=== PATIENT | female | born 1950 | race Caucasian/White ===

== ENCOUNTER 2023-07-30 16:33 | Emergency (ER) | payer OTHER ==
[2023-07-30 17:58] LABS: Absolute Lymphocytes (CBC) 0.2 K/uL (0.7-4.9); Hematocrit 37.9 % (36.0-45.0); Lymphocytes % 2.3 % (15.3-44.8); MCV 99.9 fL (80-100); MPV 6.7 fL (7.6-11.3); Platelets 247 thou/uL (152-406); RBC Red Blood Cell Count 3.79 M/uL (3.86-4.86)
[2023-07-30 18:01] LABS: Protime INR 1.27
[2023-07-30 18:17] LABS: Bilirubin Total 0.6 mg/dL (0.2-1.0); Potassium 4.9 mEq/L (3.5-5.1); Protein, Total 6.8 g/dL (6.4-8.2); Troponin High Sensitivity 12.3 pg/mL (<58.9)
[2023-07-30 18:29] LABS: Blood Morphology Comment NOT SEEN (NOT SEEN); Platelet Estimate ADEQ; White Blood Cell Scan OK (OK)
--- NOTE | 2023-07-30 18:38 | ER ---
Nurse's Notes [facility] Name: Jeffery Hunt Age: 73 yrs Sex: Female : 1950 Arrival Date: 07/30/2023 Time: 16:33 Bed 14 Private MD: Diagnosis: COPD/ Chronic obstructive pulmonary disease with (acute) exacerbation;Hypoxia Presentation: 07/30 16:45 Chief complaint: EMS states: patient fell at grocery store, not wearing home O2, sats ko1 were 72%. Has a skin tear to left thumb, left ring finger and left tricep, also left calf. Coronavirus screen: At this time, the client does not indicate any symptoms associated with coronavirus-19. Ebola Screen: No symptoms or risks identified at this time. Initial Sepsis Screen: Does the patient meet any 2 criteria? RR > 20 per min. HR > 90 bpm. Yes Does the patient have a suspected source of infection? Yes: Productive cough/pneumonia. Risk Assessment: Do you want to hurt yourself or someone else? Patient reports no desire to harm self or others. Onset of symptoms was July 30, 2023. Mechanism of Injury: Fall from standing position. 16:45 Method Of Arrival: EMS: [facility] ko1 16:45 Acuity: ADRIANA 3 ko1 Triage Assessment: 18:29 General: Appears distressed, uncomfortable, Behavior is cooperative, appropriate for ko1 age, anxious. Pain: Denies pain. EENT: No deficits noted. Neuro: No deficits noted. Cardiovascular: No deficits noted. Respiratory: Airway is patent Respiratory effort is labored, using tripod position, Respiratory pattern is tachypnea Breath sounds are coarse Breath sounds with crackles Breath sounds with rhonchi bilaterally. the patient has severe shortness of breath. GI: No deficits noted. : No deficits noted. Derm: Derm: Wound noted left ring finger, left thumb, left tricep and left calf skin tears. Musculoskeletal: No deficits noted. Injury Description: skin tear. Historical: - Allergies: 18:29 No Known Allergies; ko1 - PMHx: 18:29 Chronic obstructive lung disease; Pneumonia; ko1 - Immunization history:: Adult Immunizations unknown. - Social history:: Smoking status: Patient reports the use of cigarette tobacco products, smokes two packs cigarettes per day. Screenin:45 [facility] ED Fall Risk Assessment (Adult) History of falling in the last 3 months, ko1 including since admission Yes- single mechanical fall (1 pt) Confusion or Disorientation No (0 pts) Intoxicated or Sedated No (0 pts) Impaired Gait Yes (1 pt) Mobility Assist Device Used Yes (1 pt) Altered Elimination No (0 pt) Score/Fall Risk Level 3 or more points = High Risk Oriented to surroundings, Maintained a safe environment, Educated pt \T\ family on fall prevention, incl call for assistance when getting out of bed, Assessed \T\ reinforced patient's understanding of fall precautions, Provided non-skid footwear, Hourly rounding (assess needs \T\ fall precautionary measures) done, Used ambulatory aids as needed (educated on \T\ assisted with), Used gait belt as appropriate Implemented a Fall Risk Plan of Care, Apply high fall risk patient identification: yellow non skid footwear/ fall signage, Utilized family, sitter, or virtual size maker as indicated. Abuse screen: Denies threats or abuse. Denies injuries from another. Nutritional screening: No deficits noted. Tuberculosis screening: No symptoms or risk factors identified. Assessment: 17:00 Reassessment: see triage note. ko1 18:34 Reassessment: Patient refused all treatments, agreed to labs except second set of blood ko1 cultures. States she has a DNR does not want any treatments or tests, Farida Ng, KARIN aware. Vital Signs: 16:45 BP 114 / 56; Pulse 109; Resp 22; Temp 99.6(O); Pulse Ox 99% on 3 lpm NC; ko1 18:00 BP 108 / 56; Pulse 98; Resp 24; Pulse Ox 99% on 3 lpm NC; ko1 ED Course: 16:45 Inserted saline lock: 22 gauge in right antecubital area, using aseptic technique. ko1 Blood collected. 16:45 Patient has correct armband on for positive identification. Bed in low position. Call ko1 light in reach. Side rails up X2. Provided Education on: na. Client placed on continuous cardiac and pulse oximetry monitoring. NIBP monitoring applied. bus driver/monitor on. Door closed. Noise minimized. Lights dimmed. Warm blanket given. 16:48 Patient arrived in ED. ko1 16:48 Hazel Ng, ANNA is PHCP. kb 16:48 Tino Stephenson MD is Attending Physician. kb 16:50 Carmelita Yan, RN is Primary Nurse. ko1 17:42 Magnesium Sent. ko1 17:42 Troponin High Sensitivity Sent. ko1 17:42 BNP Sent. ko1 17:43 CBC with Diff Sent. ko1 17:43 CMP Sent. ko1 17:43 Lactate w/ 2H reflex if indic. Sent. ko1 17:43 Protime (+inr) Sent. ko1 17:43 Ptt, Activated Sent. ko1 18:29 Triage completed. ko1 18:29 Arm band placed on right wrist. Patient placed in an exam room, on a stretcher, on ko1 oxygen, on manager monitoring, on pulse oximetry, Patient notified of wait time. 18:35 No provider procedures requiring assistance completed. IV discontinued, intact, ko1 bleeding controlled, No redness/swelling at site. Pressure dressing applied. 18:40 Primary Nurse role handed off by Carmelita Yan, RN kb Administered Medications: 17:42 Not Given (Patient Refused): Albuterol Inhalation 2.5 mg Inhalation once ko1 17:42 Not Given (Patient Refused): Ipratropium Inhalation Aerosol 0.5 mg Inhalation once ko1 17:42 Not Given (Patient Refused): MethylPrednisoLONE IVP 125 mg IVP once ko1 17:42 Not Given (Patient Refused): Magnesium Sulfate IVPB 1 grams IVPB once over 1 hrs ko1 Medication: 18:32 VIS not applicable for this client. ko1 Outcome: 18:35 AMA AMA form signed ko1 18:35 Condition: unchanged 18:35 Discharge instructions given to patient, family, Instructed on wound care, Demonstrated understanding of wound care. 18:38 Patient left the ED. ko1 18:41 Patient left the ED. kb Signatures: Hazel Ng, VENDING MACHINE SERVICER-C VENDING MACHINE SERVICER-Ckb Carmelita Yan, RN RN ko1
--- NOTE | 2023-07-30 18:41 | EDPHYS ---
Physician Documentation [facility] Name: Jeffery Hunt Age: 73 yrs Sex: Female : 1950 Arrival Date: 07/30/2023 Time: 16:33 Bed 14 Private MD: ED Physician Tino Stephenson HPI: 07/31 00:30 This 73 yrs old Female presents to ER via EMS with complaints of Near syncope, kb shortness of breath, weakness. 00:30 The patient has experienced near-syncope. Onset: The symptoms/episode began/occurred kb just prior to arrival. Duration: This was a single episode. Context: the episode(s) was witnessed, by a bystander, occurred at a parking lot, occurred while the patient was walking, Just prior to the episode the patient experienced no apparent symptoms. Associated injury: Other: Skin tears noted to left calf, left hand and left upper arm.. Associated signs and symptoms: Pertinent positives: shortness of breath. Current symptoms: Currently, the patient is not experiencing any symptoms, the patient feels back to baseline, no decreased level of consciousness, no confusion, no dysphasia, no headache, no paralysis, no visual changes. The patient has not experienced similar symptoms in the past. The patient has not recently seen a physician. Patient became weak while walking out of [employer] and fell to the ground. States she did not pass out. EMS reports bystanders think she may have passed out for couple of seconds, O2 sat 86% upon their arrival. Patient is on second course of antibiotics for pneumonia.. Historical: - Allergies: 07/30 18:29 No Known Allergies; ko1 - PMHx: 18:29 Chronic obstructive lung disease; Pneumonia; ko1 - Immunization history:: Adult Immunizations unknown. - Social history:: Smoking status: Patient reports the use of cigarette tobacco products, smokes two packs cigarettes per day. ROS: 07/31 00:30 Constitutional: Negative for fever, chills, and weight loss. kb Respiratory: Positive for cough, shortness of breath, wheezing. Neuro: Positive for near syncope, weakness. All other systems are negative. Exam: 00:34 Head/Face: Normocephalic, atraumatic. ENT: Moist Mucous membranes Cardiovascular: kb Regular rate and rhythm with a normal S1 and S2. No gallops, murmurs, or rubs. No pulse deficits. Abdomen/GI: Soft, non-tender. No distention MS/ Extremity: Pulses equal, no cyanosis. Neurovascular intact. Full, normal range of motion. Neuro: Awake and alert, GCS 15, oriented to person, place, time, and situation. Moves all extremities. Normal gait. 00:34 Constitutional: The patient appears alert, awake. 00:34 Respiratory: moderate respiratory distress is noted, Respirations: labored breathing, that is moderate, Breath sounds: wheezing: expiratory that is moderate, is heard diffusely. 00:34 Skin: Small skin tears noted to left calf, left hand and left upper arm. Vital Signs: 07/30 16:45 BP 114 / 56; Pulse 109; Resp 22; Temp 99.6(O); Pulse Ox 99% on 3 lpm NC; ko1 18:00 BP 108 / 56; Pulse 98; Resp 24; Pulse Ox 99% on 3 lpm NC; ko1 MDM: 16:48 Patient medically screened. kb 07/31 00:34 Differential Diagnosis: Pneumonia, sepsis, COPD exacerbation, bronchitis, flu, COVID. kb Data reviewed: vital signs, nurses notes. Consideration of Admission/Observation Escalation of care including admission/observation considered. Admission considered but patient refuses to stay in the hospital.. Management of patient was discussed with the following: Dr. Stephenson who also recommends admission. I considered the following discharge prescriptions or medication management in the emergency department Solu-Medrol, albuterol, Atrovent, magnesium considered but patient refuses. Historians other than the Patient: EMS: [facility]. Counseling: I had a detailed discussion with the patient and/or guardian regarding the historical points, exam findings, and any diagnostic results supporting the discharge/admit diagnosis, lab results, the need for further work-up and treatment in the hospital. Refusal of service: The patient/guardian displays adequate decision making capability and despite a detailed discussion of alternatives, benefits, risks, and consequences refuses: Admission to the hospital for further work-up and treatment, Medications, all X-rays. ED course: Patient has decided to leave our facility AGAINST MEDICAL ADVICE. I have assessed the patient's ability to make an informed decision and it is my opinion at this time that the patient has the medical decision-making capacity to comprehend information regarding current medical condition and appreciates the impact of the disease or condition and the consequences of various options for treatment, including foregoing treatment. The patient possesses the ability to evaluate all treatment options, compare the risk and benefits of each option, communicate choice and is able to make rational choices. I have explained to the patient further testing, treatment, and evaluation I would like to perform during the current emergency department visit as well as any possible alternatives that could be accomplished in a timely manner. I have outlined the possible risk of foregoing any or all of these interventions and the patient understands and acknowledges that the decision to leave may result in undesirable consequences such as , permanent disability, and/or loss of current lifestyle. Even though leaving AMA a is not ideal, I have instructed the patient to follow any discharge instructions given, take any medications prescribed and resume care as soon as possible with another provider. Additionally, I have clearly stated that the patient is welcome to return at any time to continue care at our facility.. 00:37 ED course: Patient refuses all medications, chest x-ray and admission. States that she kb has oxygen at home that she can use, neb treatments make her too nervous and she is not going to stay in the hospital.. 15:58 ED course: Attempted to call pt for follow up with no answer. Voicemail left. kb 07/30 16:50 Order name: Blood Culture Adult (2) kb 07/30 16:50 Order name: CBC with Diff; Complete Time: 18:35 kb 07/30 16:50 Order name: CMP; Complete Time: 18:18 kb 07/30 16:50 Order name: Lactate w/ 2H reflex if indic.; Complete Time: 18:18 kb 07/30 16:50 Order name: Protime (+inr); Complete Time: 18:05 kb 07/30 16:50 Order name: Ptt, Activated; Complete Time: 18:05 kb 07/30 16:50 Order name: BNP; Complete Time: 18:18 kb 07/30 16:50 Order name: Troponin High Sensitivity; Complete Time: 18:18 kb 07/30 16:50 Order name: Magnesium; Complete Time: 18:18 kb 07/30 18:02 Order name: CBC Smear Scan; Complete Time: 18:35 EDMS 07/30 16:50 Order name: Cardiac monitoring; Complete Time: 17:12 kb 07/30 16:50 Order name: IV Saline Lock - Large Bore; Complete Time: 17:43 kb 07/30 16:50 Order name: Labs collected and sent kb 07/30 16:50 Order name: O2 Per Protocol; Complete Time: 17:12 kb 07/30 16:50 Order name: O2 Sat Monitoring; Complete Time: 17:12 kb 07/30 16:50 Order name: Vital Signs; Complete Time: 17:12 kb Administered Medications: 07/30 17:42 Not Given (Patient Refused): Albuterol Inhalation 2.5 mg Inhalation once ko1 17:42 Not Given (Patient Refused): Ipratropium Inhalation Aerosol 0.5 mg Inhalation once ko1 17:42 Not Given (Patient Refused): MethylPrednisoLONE IVP 125 mg IVP once ko1 17:42 Not Given (Patient Refused): Magnesium Sulfate IVPB 1 grams IVPB once over 1 hrs ko1 Disposition: 07/31 10:01 Co-signature as Attending Physician, Tino Stephenson MD I reviewed the patient's care rn provided by the Advanced Practice Provider and agree with the diagnosis and treatment plan. Disposition Summary: 07/30/23 18:38 Left Against Medical Advice Location: Home ko1 Problem: an acute exacerbation kb Symptoms: are unchanged kb Condition: Serious(07/30/23 18:40) kb Diagnosis - COPD/ Chronic obstructive pulmonary disease with (acute) exacerbation kb - Hypoxia kb Followup: kb - With: Emergency Department - When: As needed - Reason: Worsening of condition Followup: kb - With: Private Physician - When: 2 - 3 days - Reason: Recheck today's complaints, Continuance of care, Re-evaluation by your physician Signatures: Dispatcher [employer] Hazel Ramos, ALMOND PAN FINISHER-C ALMOND PAN FINISHER-Ckb Tino Stephenson MD MD rn Oliver, Kathy, RN RN ko1 Corrections: (The following items were deleted from the chart) 07/30 17:44 16:51 Chest Single View+RAD.RAD.BRZ ordered. EDWV ANGIWV 18:40 18:38 Critical ko1 kb
[2023-07-30 18:48] VITALS: TEMP 99.6; O2SAT 99
[2023-07-30 18:50] VITALS: BP 108/56
== END 2023-07-30 18:41 | disposition left against medical advice (07) ==
LOC: ER 16:33
DX: J44.1 Chronic obstructive pulmonary disease with (acute) exacerbation (principal); R09.02 Hypoxemia; F17.210 Nicotine dependence, cigarettes, uncomplicated
CPT/HCPCS: 36415; 80053; 83605; 83735; 83880; 84484; 85025; 85610; 85730; 87040; 99285

== ENCOUNTER 2023-08-21 07:15 | Inpatient (IN) | payer OTHER ==
[2023-08-21 07:41] LABS: Absolute Lymphocytes (CBC) 0.5 K/uL (0.7-4.9); Hematocrit 34.7 % (36.0-45.0); Lymphocytes % 3.8 % (15.3-44.8); MCV 98.9 fL (80-100); MPV 6.7 fL (7.6-11.3); Platelets 201 thou/uL (152-406); RBC Red Blood Cell Count 3.51 M/uL (3.86-4.86)
[2023-08-21] MEDS ORDERED: LEVALBUTEROL 0.63 MG/3 ML NEB ONE (07:47)
[2023-08-21 08:12] LABS: Albumin 2.4 g/dL (3.4-5.0); Bilirubin Direct 0.3 mg/dL (0-0.2); Bilirubin Indirect, Calculated 0.6 mg/dL (0.2-0.8); Bilirubin Total 0.9 mg/dL (0.2-1.0); Magnesium 1.6 mg/dL (1.6-2.4); Protein, Total 5.4 g/dL (6.4-8.2); Troponin High Sensitivity 17.2 pg/mL (<58.9)
--- NOTE | 2023-08-21 08:20 | RAD REPORT ---
EXAM DESCRIPTION: RAD - Pelvis - 08/21/2023 8:01 am CLINICAL HISTORY: TRAUMA COMPARISON: CT ABDOMEN PELVIS WO CONTRAST dated 07/22/2015 TECHNIQUE: Single AP view of the pelvis. FINDINGS: Cortical defect along the pubis junction with the left superior pubic ramus, suggestive of a displaced fracture. . No suspicious osseous lesions. Mild bilateral degenerative changes of the hi p joints. Other pelvic joints are unremarkable. Visualized aspects of the abdomen and soft tissues ar e unremarkable. IMPRESSION: Cortical defect suggesting a fracture along the junction of the pubis with the left supe rior pubic ramus.
--- NOTE | 2023-08-21 08:23 | RAD REPORT ---
EXAM DESCRIPTION: RADChest Single View08/21/2023 8:01 am CLINICAL HISTORY: COPD COMPARISON: Chest Pa And Lat (2 Views) dated 02/11/2019; CHEST PA AND LAT 2 VIEW dated 08/11/2015; TIARA ST SINGLE VIEW dated 07/26/2015; CHEST SINGLE VIEW dated 07/25/2015; Head C Spine Mpr Wo Con dated 2022 TECHNIQUE: Portable AP view of the chest. FINDINGS: Hyperinflation and hyperlucency suggesting COPD. Interstitial thickening near the apices. Suggestion of small right pleural effusion. No pneumothorax or left effusion. The cardiomediastinal contours are unremarkable. Cortical irregularity along the of the left sixth- eighth ribs, suggestin g fractures of indeterminate age. IMPRESSION: Interstitial thickening near the apices and development of small right pleural effusion. Findings suggest COPD exacerbation. Cortical irregularity along the left sixth-eighth ribs, suggesting fractures of indeterminate age.
--- NOTE | 2023-08-21 08:56 | RAD REPORT ---
EXAM DESCRIPTION: CT - CTHCSPWOC - 08/21/2023 8:06 am CLINICAL HISTORY: TRAUMA COMPARISON: HEAD BRAIN W O CONTRAST dated 07/07/2009 TECHNIQUE: Axial thin cut noncontrast CT images of the head were obtained. Axial thin cut noncontrast CT images of the cervical spine were obtained. Multiplanar reformatted images were generated and reviewed. All CT scans are performed using dose optimization technique as appropriate and may include automated exposure control or mA/KV adjustment according to patient size. FINDINGS: CT HEAD WITHOUT CONTRAST: No acute hemorrhage, hydrocephalus or extra-axial collection is identified. Confluent deep white caridad er hypodensities, nonspecific, suggestive of chronic small vessel ischemic changes. Pattern is progre ssive since 2008. No areas of brain edema or midline shift. Calvarial thinning in the parietal region s bilaterally, nonspecific. The paranasal sinuses and mastoids are clear.The calvarium is intact. CT CERVICAL SPINE WITHOUT CONTRAST: No fracture or subluxation. Levoconvex curvature at the cervicothoracic junction, could be positional . No prevertebral soft tissues swelling is identified. Biapical scarring with interstitial and peribr onchovascular thickening. Background moderate to advanced centrilobular emphysematous changes. IMPRESSION: No acute traumatic intracranial or cervical spine findings. Findings suggestive of chronic small vessel ischemic changes, progressive since 2008. Nonspecific wesly ateral parietal calvarial thinning. Biapical scarring in the included lungs with interstitial and peribronchovascular thickening. Finding s may suggest COPD exacerbation.
[2023-08-21 09:04] LABS: Specific Gravity 1.011 (1.005-1.030); Urine Bacteria None Seen /HPF (<20); Urine Bilirubin NEGATIVE (Negative); Urine Blood 1+ (Negative); Urine Clarity Clear (Clear); Urine Color Light-Yellow (Yellow); Urine Glucose 2+ (Negative); Urine Protein TRACE (Negative); Urine Urobilinogen Normal (Normal)
[2023-08-21] MEDS ORDERED: POTASSIUM CL SA 10 MEQ TAB PO ONE (09:39)
--- NOTE | 2023-08-21 09:42 | ER ---
Nurse's Notes [facility] Name: Jeffery Hunt Age: 73 yrs Sex: Female : 1950 Arrival Date: 08/21/2023 Time: 07:15 Bed 7 Private MD: Diagnosis: Generalized weakness;Multiple falls;COPD exacerbation;Nondisplaced fracture left superior pubic ramus;Hypokalemia Presentation: 08/21 07:25 Chief complaint: EMS states: Pt lives alone, has had multiple falls, fell last night at ph approx 1700 and has been on the ground until sons checked on her this morning, multiple wounds to bilateral arms, ankles/feet, stage 2 pressure ulcer to R hip, pt states that she was lying on that side after falling. Coronavirus screen: Vaccine status: Patient reports being unvaccinated. Ebola Screen: No symptoms or risks identified at this time. Initial Sepsis Screen: Does the patient meet any 2 criteria? RR > 20 per min. Does the patient have a suspected source of infection? Yes: Productive cough/pneumonia. Risk Assessment: Do you want to hurt yourself or someone else? Patient reports no desire to harm self or others. Onset of symptoms was August 21, 2023. 07:25 Method Of Arrival: EMS: [facility] 07:25 Acuity: ADRIANA 2 ph Triage Assessment: 07:29 General: Appears in no apparent distress. Behavior is calm, cooperative. Pain: Denies ph pain. Neuro: Level of Consciousness is awake, alert, obeys commands, Oriented to person, place, time, situation. Cardiovascular: Capillary refill is sluggish in bilateral fingers. Respiratory: Reports shortness of breath cough that is Airway is patent Respiratory effort is labored, Respiratory pattern is tachypnea Breath sounds are coarse bilaterally. GI: No signs and/or symptoms were reported involving the gastrointestinal system. Derm: Bruising that is dark purple, on right arm and left arm Decubitus located on right hip(s) approximately 2.6 cm to 7.5 cm is stage II. Musculoskeletal:. Injury Description: multiple skin tears and hematomas to bilateral arms and lower legs, large skin tear to L ankle. Historical: - Allergies: 07:24 No Known Allergies; ld1 - PMHx: 07:24 Chronic obstructive lung disease; Pneumonia; ld1 - Immunization history:: Adult Immunizations up to date. - Social history:: Smoking status: Patient/guardian denies using tobacco, Patient/guardian denies using alcohol. - Family history:: not pertinent. Screenin:28 [facility] ED Fall Risk Assessment (Adult) History of falling in the last 3 months, ph including since admission Yes- fall prone (multiple falls) (3 pts) Confusion or Disorientation No (0 pts) Intoxicated or Sedated No (0 pts) Impaired Gait Yes (1 pt) Mobility Assist Device Used Yes (1 pt) Altered Elimination Yes (1 pt) Score/Fall Risk Level 3 or more points = High Risk Oriented to surroundings, Maintained a safe environment, Hourly rounding (assess needs \T\ fall precautionary measures) done, Used ambulatory aids as needed (educated on \T\ assisted with), Used gait belt as appropriate. Abuse screen: Denies threats or abuse. Denies injuries from another. Nutritional screening: No deficits noted. Tuberculosis screening: No symptoms or risk factors identified. Assessment: 09:06 General: Appears in no apparent distress. comfortable, Behavior is calm, cooperative, ld1 appropriate for age. Pain: Complains of pain in left arm and right arm Pain does not radiate. Pain currently is 8 out of 10 on a pain scale. Quality of pain is described as throbbing. Neuro: Level of Consciousness is awake, alert, obeys commands, Oriented to person, place, time, situation. Cardiovascular: Capillary refill < 3 seconds Patient's skin is warm and dry. Rhythm is sinus rhythm. Respiratory: Airway is patent Respiratory effort is even, labored. GI: Abdomen is flat, non-distended. : No signs and/or symptoms were reported regarding the genitourinary system. EENT: No signs and/or symptoms were reported regarding the EENT system. Derm: No signs and/or symptoms reported regarding the dermatologic system. 10:30 Reassessment: Patient appears in no apparent distress at this time. No changes from ld1 previously documented assessment. Patient and/or family updated on plan of care and expected duration. Pain level reassessed. Patient is alert, oriented x 3, equal unlabored respirations, skin warm/dry/pink. 11:25 Reassessment: Patient appears in no apparent distress at this time. No changes from ld1 previously documented assessment. Patient and/or family updated on plan of care and expected duration. Pain level reassessed. Vital Signs: 07:24 BP 124 / 72; Pulse 69; Resp 26; Pulse Ox 98% on R/A; Weight 51.26 kg; Height 5 ft. 2 ld1 in. ; 09:06 BP 101 / 63; Pulse 83; Pulse Ox 96% on R/A; ld1 11:25 BP 107 / 62; Pulse 77; Resp 18; Pulse Ox 96% on R/A; ld1 07:24 Body Mass Index 20.67 (51.26 kg, 157.48 cm) ld1 ED Course: 07:22 Patient arrived in ED. bd 07:22 Bear Armstrong MD is Attending Physician. rt 07:25 Lashay Aguirre, RN is Primary Nurse. ph 07:28 Triage completed. ph 07:31 Arm band placed on Patient placed in an exam room, on a stretcher, on driver merchandiser, ph on pulse oximetry. 07:31 Patient has correct armband on for positive identification. Placed in gown. Bed in low ph position. Call light in reach. Side rails up X2. Client placed on continuous cardiac and pulse oximetry monitoring. NIBP monitoring applied. Warm blanket given. 07:37 Maintain EMS IV. Dressing intact. Good blood return noted. Site clean \T\ dry. Gauge \T\ ld 1 site: 18G LAC. 08:04 XRAY Chest (1 view) In Process Unspecified. EDMS 08:04 Pelvis XRAY In Process Unspecified. EDMS 08:06 CT Head C Spine In Process Unspecified. EDMS 09:06 No provider procedures requiring assistance completed. ld1 09:40 Leobardo Stephenson MD is Hospitalizing Provider. rt 10:43 Thorax Wo Con In Process Unspecified. EDMS 12:00 Patient admitted, IV remains in place. ph Administered Medications: 07:37 Drug: Levalbuterol Inhalation 0.63 mg Inhalation once Route: Inhalation; ld1 09:31 Drug: Potassium Chloride PO Liquid 40 mEq PO once Route: PO; ld1 10:00 Follow up: Response: No adverse reaction ph Outcome: 09:41 Decision to Hospitalize by Provider. rt 12:12 Patient left the ED. ll1 12:12 Admitted to Med/surg ph 12:12 Condition: stable Signatures: Dispatcher [employer] EDMS DirTerrie cano Patricia, RN RN ph Syd, Chhaya, RN RN ll1 Grecia Lyons RN RN ld1 Bear Armstrong MD MD rt
--- NOTE | 2023-08-21 09:42 | EDPHYS ---
Physician Documentation [facility] Name: Jeffery Hunt Age: 73 yrs Sex: Female : 1950 Arrival Date: 08/21/2023 Time: 07:15 Bed 7 Private MD: ED Physician Bear Armstrong HPI: 08/21 07:40 This 73 yrs old Female presents to ER via EMS with complaints of Multiple falls. rt 07:40 Patient presents to the ED with a fall last night, estimated at about 5 PM. She has rt been lying on the ground since then. Patient did have another fall about a day or 2 before also with prolonged downtime however, she reported that she refused transport at that time. She cannot recall the events surrounding the fall. She reports shortness of breath but denies other acute complaints at this time. Symptoms are moderate in severity, no other aggravating or alleviating factors.. Historical: - Allergies: 07:24 No Known Allergies; ld1 - PMHx: 07:24 Chronic obstructive lung disease; Pneumonia; ld1 - Immunization history:: Adult Immunizations up to date. - Social history:: Smoking status: Patient/guardian denies using tobacco, Patient/guardian denies using alcohol. - Family history:: not pertinent. ROS: 07:40 Constitutional: Negative for fever, chills, and weight loss, Cardiovascular: Negative rt for chest pain, palpitations, and edema, Abdomen/GI: Negative for abdominal pain, nausea, vomiting, diarrhea, and constipation, MS/Extremity: Negative for injury and deformity, Neuro: Negative for headache, weakness, numbness, tingling, and seizure, Psych: Negative for depression, anxiety, suicide ideation, homicidal ideation, and hallucinations, 07:40 Respiratory: Positive for cough, shortness of breath, 07:40 Skin: Positive for Skin tears, pressure wound, Exam: 07:40 Constitutional: This is a well developed, well nourished patient who is awake, alert, rt and in no acute distress. Chest/axilla: Normal chest wall appearance and motion. Nontender with no deformity. No lesions are appreciated. Cardiovascular: Regular rate and rhythm with a normal S1 and S2. No gallops, murmurs, or rubs. Normal PMI, no JVD. No pulse deficits. 07:40 Neck: Trachea midline, no thyromegaly or masses palpated, and no cervical lymphadenopathy. Supple, full range of motion without nuchal rigidity, or vertebral point tenderness. No Meningismus. Abdomen/GI: Soft, non-tender, with normal bowel sounds. No distension or tympany. No guarding or rebound. No evidence of tenderness throughout. Neuro: Awake and alert, GCS 15, oriented to person, place, time, and situation. Cranial nerves II-XII grossly intact. Motor strength 5/5 in all extremities. Sensory grossly intact. Cerebellar exam normal. Normal gait. Psych: Awake, alert, with orientation to person, place and time. Behavior, mood, and affect are within normal limits. 07:40 Head/face: Dried blood on the left cheek, no other external evidence of trauma. 07:40 Respiratory: Coarse rhonchorous breath sounds heart normal lung betts, no respiratory distress, 07:40 Musculoskeletal/extremity: No swelling, deformity, tenderness to palpation, skin tears noted on the left hand, left foot. 07:40 Skin: Pressure wound noted to the right side.. 08:40 ECG was reviewed by the Attending Physician. rt Vital Signs: 07:24 BP 124 / 72; Pulse 69; Resp 26; Pulse Ox 98% on R/A; Weight 51.26 kg; Height 5 ft. 2 ld1 in. ; 09:06 BP 101 / 63; Pulse 83; Pulse Ox 96% on R/A; ld1 11:25 BP 107 / 62; Pulse 77; Resp 18; Pulse Ox 96% on R/A; ld1 07:24 Body Mass Index 20.67 (51.26 kg, 157.48 cm) ld1 MDM: 07:22 Patient medically screened. rt 09:41 Differential Diagnosis Electrolytes terms, rhabdomyolysis, syncope. Data reviewed: rt vital signs, nurses notes, lab test result(s), EKG, radiologic studies. Consideration of Admission/Observation Patient was admitted/placed on observation. Management of patient was discussed with the following: Hospitalist: Agrees to admit. I considered the following discharge prescriptions or medication management in the emergency department Medications were administered in the Emergency Department. See MAR. Independent interpretation of the following test(s) in the Emergency Department X-Ray: My interpretation is No consolidation seen on interpretation of the x-ray images. Care significantly affected by the following chronic conditions: Chronic Obstructive Pulmonary Disease. Counseling: I had a detailed discussion with the patient and/or guardian regarding the historical points, exam findings, and any diagnostic results supporting the discharge/admit diagnosis, lab results, radiology results, the need for further work-up and treatment in the hospital. Response to treatment: the patient's symptoms have mildly improved after treatment. 08/21 07:24 Order name: Basic Metabolic Panel; Complete Time: 08:34 rt 08/21 07:24 Order name: CBC with Diff; Complete Time: 08:34 rt 08/21 07:24 Order name: LFT's; Complete Time: 08:34 rt 08/21 07:24 Order name: Magnesium; Complete Time: 08:34 rt 08/21 07:24 Order name: NT PRO-BNP; Complete Time: 08:34 rt 08/21 07:24 Order name: Troponin HS; Complete Time: 08:34 rt 08/21 07:24 Order name: CPK; Complete Time: 08:34 rt 08/21 07:24 Order name: UAM; Complete Time: 09:05 rt 08/21 10:33 Order name: Basic Metabolic Panel [facility] 08/21 10:33 Order name: Creatine Phosphokinase [facility] 08/21 10:39 Order name: Magnesium [facility] 08/21 10:39 Order name: Phosphorus [facility] 08/21 10:39 Order name: Protime (+INR) [facility] 08/21 10:39 Order name: T4 Free [facility] 08/21 10:39 Order name: Thyroid Stimulating Hormone [facility] 08/21 10:39 Order name: Urinalysis w/ reflexes [facility] 08/21 10:39 Order name: Basic Metabolic Panel [facility] 08/21 10:39 Order name: Basic Metabolic Panel [facility] 08/21 10:39 Order name: CBC with Automated Diff [facility] 08/21 10:39 Order name: CBC with Automated Diff [facility] 08/21 10:39 Order name: Creatine Phosphokinase [facility] 08/21 10:39 Order name: Creatine Phosphokinase [facility] 08/21 10:39 Order name: Creatine Phosphokinase [facility] 08/21 10:39 Order name: Creatine Phosphokinase [facility] 08/21 10:39 Order name: Lipid Profile [facility] 08/21 10:39 Order name: Lipid Profile [facility] 08/21 10:39 Order name: NT PRO-BNP [facility] 08/21 10:39 Order name: NT PRO-BNP [facility] 08/21 10:43 Order name: Hemoglobin A1c [facility] 08/21 07:24 Order name: XRAY Chest (1 view); Complete Time: 08:34 rt 08/21 07:24 Order name: Pelvis XRAY; Complete Time: 08:34 rt 08/21 07:24 Order name: CT Head C Spine; Complete Time: 08:57 rt 08/21 10:30 Order name: Thorax Wo Con; Complete Time: 11:53 [facility] 08/21 07:24 Order name: EKG; Complete Time: 07:25 rt 08/21 10:39 Order name: Regular [facility] 08/21 10:43 Order name: Case Management Consult [facility] 08/21 10:43 Order name: Physical Therapy Consult [facility] 08/21 07:24 Order name: Cardiac monitoring; Complete Time: 07:28 rt 08/21 07:24 Order name: EKG - Nurse/Tech; Complete Time: 07:37 rt 08/21 07:24 Order name: IV Saline Lock; Complete Time: 07:28 rt 08/21 07:24 Order name: Labs collected and sent; Complete Time: 07:34 rt 08/21 07:24 Order name: O2 Per Protocol; Complete Time: 07:28 rt 08/21 07:24 Order name: O2 Sat Monitoring; Complete Time: 07:28 rt EC:40 Rate is 79 beats/min. Rhythm is regular, Normal Sinus Rhythm with Unifocal PVCs. QRS rt [place] is Normal. ME interval is normal. QRS interval is normal. QT interval is normal. No Q waves. Clinical impression: NSR w/ Non-specific ST/T Changes. Administered Medications: 07:37 Drug: Levalbuterol Inhalation 0.63 mg Inhalation once Route: Inhalation; ld1 09:31 Drug: Potassium Chloride PO Liquid 40 mEq PO once Route: PO; ld1 10:00 Follow up: Response: No adverse reaction ph Disposition Summary: 08/21/23 09:41 Hospitalization Ordered Notes: Hospitalization Status: Observation rt Provider: Leobardo Stephenson rt Location: Telemetry/MedSurg (observation) rt Condition: Stable rt Problem: an ongoing problem rt Symptoms: are unchanged rt Bed/Room Type: Standard rt Room Assignment: 431(08/21/23 11:01) bd Diagnosis - Generalized weakness rt - Multiple falls rt - COPD exacerbation rt - Nondisplaced fracture left superior pubic ramus rt - Hypokalemia rt Forms: - Medication Reconciliation Form rt - SBAR form rt - Leadership Thank You Letter rt Signatures: Dispatcher [employer] Terrie Willoughby Lauren, RN RN ld1 Bear Armstrong MD MD rt Lashay Aguirre RN ph Corrections: (The following items were deleted from the chart) 11:01 09:41 rt bd
[2023-08-21] MEDS ORDERED: NICOTINE 21 MG/PAT TD ONE (10:12)
[2023-08-21] MEDS ORDERED: ONDANSETRON 4 MG/2 ML VIAL IV PRN (10:35)
[2023-08-21] MEDS ORDERED: ACETAMINOPHEN 325 MG TABLET PO PRN (10:45)
--- NOTE | 2023-08-21 10:46 | P.HP ---
Certification for Inpatient Patient admitted to: Inpatient With expected LOS: >2 Midnights Patient will require the following post-hospital care: None Practitioner: I am a practitioner with admitting privileges, knowledge of patient current condition, hospital course, and medical plan of care. Services: Services provided to patient in accordance with Admission requirements found in Title 42 Section 412.3 of the Code of Federal Regulations Patient History Date of Service: 08/21/23 Reason for admission: Frequent falls, Weakness History of Present Illness: Patient is a 73-year-old female with a past medical history significant for COPD, anxiety disorder, nicotine dependence who presents with complaint of frequent falls and generalized weakness. Patient reported that she fell twice yesterday and today had another fall. Patient was found on both times on the floor by her son. Patient reported that she hit her head yesterday when she fel l but did not lose consciousness. Patient cannot recall the exact circumstances relating to the fall and cannot remember how long she was on the floor. Patient reports associated signs and symptoms of cough, chest congestion, shortness of breath and headache. Patient noted with bilateral upper and lower extremity bruising\skin tear. Patient denies any other signs and symptoms. Symptoms are aggravated or relieved by nothing. Patient was brought to the hospital for medical evaluation. Allergies codeine Allergy (Verified 05/14/23 15:05) Nausea/Vomiting Penicillins Allergy (Verified 07/25/15 06:01) Hives/Rash Home Medications: levoFLOXacin [Levaquin*] 750 mg PO DAILY #7 tab 07/26/15 ALPRAZolam [Alprazolam] 3 mg PO BEDTIME 08/21/23 - Past Medical/Surgical History Diabetic: No -: COPD -: Nicotine dependence -: Anxiety disorder -: Partial Hysterectomy -: Neck Surgery -: Lap Yamel - Social History Smoking Status: Current every day smoker Counseled patient to stop smoking for: less than 10 minutes Smoking therapy provided: Yes Patient receptive to therapy: No Alcohol use: No CD- Drugs: No Caffeine use: Yes Place of Residence: Home Review of Systems General: Weakness Eyes: Unremarkable ENT: Unremarkable Respiratory: Cough, Shortness of Breath, Other (Chest congestion) Cardiovascular: Unremarkable Gastrointestinal: Unremarkable Genitourinary: Unremarkable Musculoskeletal: Unremarkable Integumentary: Bruising, Other (Skin tear) Neurological: Weakness, Other (Headache.) Lymphatics: Unremarkable Physical Examination - Physical Exam General: Alert, In no apparent distress, Oriented x3, Cooperative HEENT: Atraumatic, PERRLA, Mucous membr. moist/pink, EOMI, Sclerae nonicteric Neck: Supple, 2+ carotid pulse no bruit, No LAD, Without JVD or thyroid abnormality Respiratory: Diminished, Inspiratory wheezes Cardiovascular: No edema, Regular rate/rhythm, Normal S1 S2 Gastrointestinal: Normal bowel sounds, Soft and benign, No tenderness Musculoskeletal: No clubbing, No swelling, No tenderness Integumentary: Skin breakdown, Erythema Neurological: Normal speech, Normal tone, Normal affect Lymphatics: No axilla or inguinal lymphadenopathy - Studies Laboratory Data (last 24 hrs) 08/21/23 08/21/23 07:31 07:31 WBC 12.20 H Hgb 11.8 L Hct 34.7 L Plt Count 201 Sodium 131 L Potassium 3.0 L BUN 12 Creatinine 0.46 L Glucose 95 Magnesium 1.6 Total Bilirubin 0.9 AST 51 H ALT 23 Alkaline Phosphatase 87 Assessment and Plan - Plan -- Generalized weakness. CT head unremarkable for any acute intracranial abnormality. CT chest indicated Severe anterior wedge compression deformity at T4, concerning for an acute/recent fracture. Multiple left rib fractures, including seventh and eighth rib fractures which may be acute to subacute. MRI lumbar\thoracic spine pending for further evaluation. Physical therapy eval and treat. Fall precautions. Continue supportive care. --Rhabdomyolysis. Continue IV hydration. Will reassess CPK in a.m. Nephrology consulted. Will await further recommendations. --Hyponatremia. Unclear etiology. Na-128. Further management per audit machine operator. --- Hypokalemia. Replete as needed. -- Acute on chronic COPD exacerbation. Continue neb treatment with albuterol\Atrovent, steroids and O2 therapy as needed. -- Anxiety disorder. Continue Xanax at bedtime. --Leukocytosis. Likely reactive. We will continue to monitor WBC levels. --Anemia of chronic disease. H&H stable. We will continue to monitor hemoglobin and transfuse if less than 7. --Nicotine dependence. Patient placed on nicotine patch and counseled on tobacco cessation. -- DVT prophylaxis with SCDs. -- Discharge placement. Case management consulted for possible placement. Discharge Plan: Home Plan to discharge in: Greater than 2 days - Advance Directives Does patient have a Living Will: Yes Does patient have a Durable POA for Healthcare: Yes - Code Status/Comfort Care Code Status Assessed: Yes Code Status: Do Not Attempt Resuscitat Physician Review: Patient Assessed, Agree with Above Assessment and Plan Critical Care: No
[2023-08-21] MEDS: NA CHLORIDE 0.9% 1,000 ML IV SCH ×2 (11:00→15:22)
--- NOTE | 2023-08-21 11:52 | RAD REPORT ---
EXAM DESCRIPTION: CT - Thorax Wo Con - 08/21/2023 10:42 am CLINICAL HISTORY: R O Pneumonia COMPARISON: CTANGIO CHEST FOR PE dated 07/22/2015; Chest Single View dated 08/21/2023; Chest Pa And La t (2 Views) dated 02/11/2019; Head C Spine Mpr Wo Con dated 08/21/2023 TECHNIQUE: Axial thin cut images of the chest were obtained without IV contrast. Multiplanar reforma ts were generated and reviewed. All CT scans are performed using dose optimization technique as appropriate and may include automated exposure control or mA/KV adjustment according to patient size. FINDINGS: At least moderate sequelae of centrilobular emphysema. Scattered changes of peribronchovas cular wall thickening, and scattered predominantly peripheral micro nodularity and tree-in-bud opacit ies, suggestive of an infectious/ inflammatory process. No pleural thickening or pleural effusion. No pneumothorax. No abnormal mediastinal or hilar masses or lymphadenopathy seen. No significant aortic or pulmonary a rtery findings. Assessment is limited in the absence of IV contrast. No chest wall mass or abnormal axillary lymphadenopathy. Evaluation of the solid abdominal structures reveals no suspicious findings. Severe anterior wedge compression deformity at T4, with posterior cortical buckling, and some prevert ebral soft tissue swelling, suggesting acute fracture. Left seventh and eighth rib fractures, may be acute to subacute. Other left-sided rib fractures which may be healed or healing. IMPRESSION: Findings suggestive of COPD exacerbation as above. Severe anterior wedge compression deformity at T4, concerning for an acute/recent fracture. Multiple left rib fractures, including seventh and eighth rib fractures which may be acute to subacut e.
[2023-08-21 12:31] VITALS: BMI 20.6
[2023-08-21] MEDS: IPRATROPIUM BROM 0.5MG/2.5ML NEB SCH ×2 (14:00→20:00)
[2023-08-21] MEDS: ALBUTEROL 2.5 MG/3 ML NEB SOL NEB SCH ×2 (14:00→20:00)
[2023-08-21 14:22] LABS: Protime INR 1.3
[2023-08-21 14:44] LABS: Magnesium 1.6 mg/dL (1.6-2.4); Phosphorus 2.8 mg/dL (2.5-4.9); Thyroid Stimulating Hormone 0.806 uIU/mL (0.358-3.740)
[2023-08-21 14:50] LABS: Potassium 4.5 mEq/L (3.5-5.1)
[2023-08-21] MEDS: METHYLPREDNISOLONE 40 MG INJ IV SCH (18:00)
[2023-08-21] MEDS: ALPRAZOLAM 1 MG TABLET PO SCH (20:42)
[2023-08-21] MEDS: HYDROCODONE/APAP 10/325 TAB PO PRN (20:42)
[2023-08-21] MEDS ORDERED: ALPRAZOLAM 2 MG PO SCH (21:00)
--- NOTE | 2023-08-21 22:25 | RAD REPORT ---
EXAM DESCRIPTION: MRI - Thoracic Spine Wo Contr - 08/21/2023 10:11 pm CLINICAL HISTORY: Compression fracture Pain and radiculopathy COMPARISON: Thorax Wo Con dated 08/21/2023; Head C Spine Mpr Wo Con dated 08/21/2023 FINDINGS: There is a is a severe compression fracture present involving the T4 vertebral body. The v ertebral body is essentially flattened, vertebral plana. Loss of vertebral body height is 90%. Fiscal Accounting Clerk ior canal compromise is present resulting in moderate to severe central canal stenosis. There is mild surrounding paraspinal soft tissue thickening present at this level. Edema is present in the T5 and T6 vertebral bodies superiorly, nonspecific but may indicate additiona l impending compression fractures. IMPRESSION: T4 vertebral plana is noted resulting in moderate canal stenosis Mild edema involving the superior aspects of the T5 and T6 vertebral bodies suggesting impending frac tures.
--- NOTE | 2023-08-21 22:27 | RAD REPORT ---
EXAM DESCRIPTION: MRI - Lumbar Spine Wo Con- 08/21/2023 10:11 pm CLINICAL HISTORY: Frequent falls Back pain, radiculopathy COMPARISON: No comparisons FINDINGS: Vertebral body heights are within normal limits. No aggressive marrow pattern is observed. No fracture is suspected. The conus medullaris terminates at a normal level. No thickening of the cauda equina or clumping of n erve roots seen. L1-2 level: Minimal posterior disc bulge. L2-3 level: Moderate posterior disc bulge with mild facet and ligamentum flavum hypertrophy. Mild frankie tral canal stenosis. Mild narrowing of the left exit foramen. L3-4 level: Mild to moderate posterior disc bulge asymmetric to the left. Mild facet and ligamentum f lavum hypertrophy is present. Mild narrowing of the left exit foramen seen. L4-5 level: Mild posterior disc bulge asymmetric to the right foraminal region. Small posterior annul ar fissure noted centrally. Mild narrowing of both exit foramina, greater on the right. L5-S1 level: Small central disc herniation. No significant canal stenosis. Mild narrowing the right e xit foramen. IMPRESSION: No acute lumbar spine abnormality. Mild multilevel lumbar degenerative spondylosis is present.
[2023-08-22] MEDS: METHYLPREDNISOLONE 40 MG INJ IV SCH ×3 (01:00→16:36)
[2023-08-22] MEDS: ALBUTEROL 2.5 MG/3 ML NEB SOL NEB SCH ×2 (01:53→08:00)
[2023-08-22] MEDS: IPRATROPIUM BROM 0.5MG/2.5ML NEB SCH ×2 (01:53→08:00)
[2023-08-22 06:25] LABS: Absolute Lymphocytes (CBC) 0.8 K/uL (0.7-4.9); Hematocrit 33.9 % (36.0-45.0); Lymphocytes % 6.4 % (15.3-44.8); MCV 99.9 fL (80-100); MPV 7.3 fL (7.6-11.3); Platelets 209 thou/uL (152-406)
[2023-08-22 06:43] LABS: Potassium 4.9 mEq/L (3.5-5.1)
--- NOTE | 2023-08-22 07:48 | P.PN ---
Date of Service: 08/22/23 Subjective: Not feeling well today multiple falls recently chronic back pain worse past few days, +chronic cough Family concerned patient cannot take care of herself given her progressively declining condition and are unable care for her 17/06. Discussed at length with family further plan of care. Family requesting Hospice / Comfort care at this time ROS: 10 point ROS as noted above, otherwise negative Physical Exam: GEN: Alert, oriented, responds to verbal stimuli, answers questions, falls asleep (received pain medication recently) HEENT: Normal conjunctiva, sclera anicteric CV: Regular rate and rhythm, no edema Pulm: Nonlabored respirations on 2L NC, diminished at bases, +wheeze, +cough ABD: Soft, nontender, nondistended MSK: tender throughout, most along ribs, did not palpate spine Integumentary: Scattered ecchymosis; Skin breakdown Neuro: alert, limited secondary to pain vitals reviewed Problem List: Severe T4 Thoracic compression fracture Multiple rib fractures, indeterminate age Generalized weakness h/o frequent falls Rhabdomyolysis Acute on chronic COPD exacerbation (O2 at home) Hyponatremia Hypokalemia Anxiety disorder Anemia of chronic disease Nicotine dependence Severe T4 Thoracic compression fracture Multiple rib fractures, indeterminate age Generalized weakness h/o frequent falls xray Pelvis (08/21): Cortical defect suggesting a fracture along the junction of the pubis with the left superior pubic ramus CT head (08/21): unremarkable for any acute intracranial abnormality. chronic small vessel ischemic changes, progressive since 2008. COPD exacerbation. CT chest (08/21): Severe anterior wedge compression deformity at T4. Multiple left rib fractures, including seventh and eighth rib fractures which may be acute to subacute. MRI lumbar\\thoracic spine (08/21): T4 vertebral plain is noted resulting in moderate canal stenosis. Mild edema involving the superior aspects of the T5 and T6 vertebral bodies suggesting impending fractures Mild multilevel lumbar degenerative spondylosis is present. PT consult Neurology consulted PRN pain medication Family concerned that patient cannot take care of herself given her progressively declining condition and are unable care for her 17/06. patient states her PCP told her recently that she has been progressively declining "rapidly" recently high fall risk, now with more fractures and pain Discussed at length with family further plan of care. Family requesting Hospice / Comfort care pain medication, oxygen, anxiolytics Rhabdomyolysis Hyponatremia Nephrology consulted. CPK improved with IVFj dc IVF per family request on focus on comfort Acute on chronic COPD exacerbation (O2 at home) CXR (08/21): Findings suggest COPD exacerbation refuses nebs - makes her feels worse; discontinued continue Solu-medrol on oxygen supplementation - 2L NC currently Hypokalemia. Replete as needed. Anxiety disorder. Continue Xanax at bedtime. Anemia of chronic disease. H&H stable. Nicotine dependence. Patient placed on nicotine patch and counseled on tobacco cessation. VTE: SCD Code: DNR Dispo: H[place]ice at [place]/facility ss/cm consulted comfort measures started 08/22
[2023-08-22] MEDS: NA CHLORIDE 0.9% 1,000 ML IV SCH (09:28)
[2023-08-22] MEDS: HYDROCODONE/APAP 10/325 TAB PO PRN (09:28)
[2023-08-22 09:36] LABS: Blood Morphology Comment NOT SEEN (NOT SEEN); Platelet Estimate ADEQ; White Blood Cell Scan OK (OK)
--- NOTE | 2023-08-22 15:10 | EKG ---
Test Date: 2023-08-21 Test Time: 07:50:40 Cephalometric Tracer: BIBI MEASUREMENT RESULTS: Intervals: Rate: 79 NV: 120 QRSD: 88 QT: 400 QTc: 458 [place]: P: 92 NV: 120 QRS: 63 T: 64 INTERPRETIVE STATEMENTS: Sinus rhythm with frequent premature ventricular complexes Nonspecific ST abnormality Abnormal ECG Compared to ECG 07/23/2015 05:40:08 Ventricular premature complex(es) now present ST (T wave) deviation now present Incomplete right bundle-branch block no longer present Electronically Signed On 08-22-23 15:06:26 CDT by Shiv Handley
[2023-08-22] MEDS: ALPRAZOLAM 1 MG TABLET PO SCH (21:40)
[2023-08-23] MEDS: METHYLPREDNISOLONE 40 MG INJ IV SCH ×2 (01:00→09:00)
--- NOTE | 2023-08-23 04:05 | CON ---
Date of Consultation: 08/22/2023 Chief Complaint: Hypokalemia, hyponatremia. History Of Present Illness: The patient is a 73-year-old woman with past medical history significant for anxiety disorder, nicotine dependent, who presented with complaints of frequent falls, generaliz ed weakness, chronic pain. She has significant history of COPD. Patient reported that she fell twic e prior to this admission. She was found on the floor by her son. Patient hit her head, but did not lose consciousness. Nephrology consultation is requested for hyponatremia and hypokalemia. The hany ayala is receiving treatment for hypokalemia. She tolerates p.o. intake, although she has severe deco nditioning, failure to thrive, and does not have good appetite. Past Medical History: COPD, nicotine dependence, anxiety disorder, partial hysterectomy, neck surger y. Home Medications: Include levofloxacin and alprazolam. Social History: Current everyday smoker. Denies alcohol. Denies drugs. Review of Systems: General: Complaints of weakness, failure to thrive, decreased appetite. Eyes: Denies vision changes. Ears, Nose, Mouth, and Throat: Denies sore throat, earache. Respiratory: Has shortness of breath. Denies wheezing, hemoptysis. Cardiovascular: Denies chest pain, palpitation. Gastrointestinal: Denies nausea, vomiting, melena. Musculoskeletal: Complaining of generalized body ache and difficulty with ambulation. Neurological: General weakness. : Denies dysuria, hematuria. Physical Examination: General: Alert, not in acute distress. Eyes: Anicteric sclerae. EOMI. Ears, Nose, Mouth, and Throat: Oral mucosa moist. No pallor. Neck: Supple. No bruits. Lungs: Few rhonchi. Heart: S1, S2. Abdomen: Soft, benign, nontender. Extremities: Slight edema in both ankles. Lab Work: WBC 12.2, hemoglobin 11.8, hematocrit 34.7, platelet count 201. Sodium level 128, potassi um 4.5, chloride 95, CO2 26, BUN 12, creatinine 0.47, calcium 8.1. CK level 1956. BNP 1749. Albumi n 2.4, total protein 5.4. TSH is 0.806. Cortisol level is not available. Urinalysis showed glucose 2+, urine ketones 1+, blood 1+, rbc 11 to 20, wbc less than 5. Chest CT scan was done to evaluate f or COPD. The patient had MRI of the thoracic spine and lumbar spine. Lab work today showed CK level 982, magnesium 1.6, phosphorus 2.8, calcium 7.9. Sodium 131, potassium 4.9, chloride 100, CO2 25, B UN 23, creatinine 0.85. Urine osmolality is pending. Impression And Plan: Hyponatremia and hypokalemia likely secondary to low solute intake. Replacemen t treatment was started with potassium chloride and IV fluids with normal saline were administered fo r hypovolemia. Electrolytes improving. The patient has rhabdomyolysis which will require IV normal saline. Continue normal saline. Avoid nephrotoxic medication. Acute on chronic COPD exacerbation m ay be a culprit for worsening of the hyponatremia. Sodium was 128, although has improved to 131. Th e patient has chronic pain, which may be contributory to chronic hyponatremia and worsening of the hy ponatremia. Recommend to continue pain control. Chronic obstructive pulmonary disease exacerbation, continue steroids, albuterol, Atrovent, and O2 treatment. EB/MODL Voice ID: [id number] Report ID: [id number]
[2023-08-23 10:55] VITALS: O2SAT 97
[2023-08-23] MEDS: MORPHINE 2 MG/ML SYR IV PRN ×2 (13:08→14:04)
--- NOTE | 2023-08-23 13:24 | P.PN ---
Subjective Date of Service: 08/23/23 Chief Complaint: Frequent falls, Weakness Physical Examination - Vital Signs Temperature: 97.2 F Blood Pressure: 119/83 Pulse: 114 Respirations: 16 Pulse Ox (%): 97 Assessment And Plan - Plan Hyponatremia and hypokalemia likely secondary to low solute intake. Replacement treatment was started with potassium chloride and IV fluids with normal saline were administered for hypovolemia. Electrolytes improving. The patient has rhabdomyolysis which will require IV normal saline. Continue normal saline. Avoid nephrotoxic medication. Acute on chronic COPD exacerbation may be a culprit for worsening of the hyponatremia. Sodium was 128, although has improved to 131. The patient has chronic pain, which may be contributory to chronic hyponatremia and worsening of the hyponatremia. Recommend to continue pain control. Chronic obstructive pulmonary disease exacerbation, continue steroids, albuterol, Atrovent, and O2 treatment. Physician Review: Patient Assessed, Agree with Above Assessment and Plan
--- NOTE | 2023-08-23 13:27 | P.PN ---
Date of Service: 08/23/23 Subjective: ROS: 10 point ROS as noted above, otherwise negative Physical Exam: GEN: Alert, oriented, responds to verbal stimuli, answers questions, falls asleep (received pain medication recently) HEENT: Normal conjunctiva, sclera anicteric CV: Regular rate and rhythm, no edema Pulm: Nonlabored respirations on 2L NC, diminished at bases, +wheeze, +cough ABD: Soft, nontender, nondistended MSK: tender throughout, most along ribs, did not palpate spine Integumentary: Scattered ecchymosis; Skin breakdown Neuro: alert, limited secondary to pain vitals reviewed Problem List: Severe T4 Thoracic compression fracture Multiple rib fractures, indeterminate age Generalized weakness h/o frequent falls Rhabdomyolysis Acute on chronic COPD exacerbation (O2 at home) Hyponatremia Hypokalemia Anxiety disorder Anemia of chronic disease Nicotine dependence Severe T4 Thoracic compression fracture Multiple rib fractures, indeterminate age Generalized weakness h/o frequent falls xray Pelvis (08/21): Cortical defect suggesting a fracture along the junction of the pubis with the left superior pubic ramus CT head (08/21): unremarkable for any acute intracranial abnormality. chronic small vessel ischemic changes, progressive since 2008. COPD exacerbation. CT chest (08/21): Severe anterior wedge compression deformity at T4. Multiple left rib fractures, including seventh and eighth rib fractures which may be acu te to subacute. MRI lumbar\\thoracic spine (08/21): T4 vertebral plain is noted resulting in moderate canal stenosis. Mild edema involving the superior aspects of the T5 and T6 vertebral bodies suggesting impending fractures Mild multilevel lumbar degenerative spondylosis is present. PT consult Neurology consulted PRN pain medication Family concerned that patient cannot take care of herself given her progressively declining condition and are unable care for her 17/06. patient states her PCP told her recently that she has been progressively declining "rapidly" recently high fall risk, now with more fractures and pain Discussed at length with family further plan of care. Family requesting Hospice / Comfort care. Family have chosen [facility] - [facility] - pending equipment delivery pain medication, oxygen, anxiolytics Rhabdomyolysis Hyponatremia Nephrology consulted. CPK improved with IVFj dc IVF per family request on focus on comfort Acute on chronic COPD exacerbation (O2 at home) CXR (08/21): Findings suggest COPD exacerbation refuses nebs - makes her feels worse; discontinued continue Solu-medrol on oxygen supplementation - 2L NC currently Hypokalemia. Replete as needed. Anxiety disorder. Continue Xanax at bedtime. Anemia of chronic disease. H&H stable. Nicotine dependence. Patient placed on nicotine patch and counseled on tobacco cessation. VTE: SCD Code: DNR Dispo: Hospice - [facility] - pending equipment delivery ss/cm consulted comfort measures started 08/22
--- NOTE | 2023-08-24 06:56 | P.DS ---
Admission Date: 08/21/23 Discharge Date: 08/23/23 Disposition: Reason for Admission: Frequent falls, Weakness Consultations: Neurology - Dr. Frazier Nephrology - Dr. Pool, Dr. Alfaro-Mike Brief History of Present Illness: 73yo F, PMH: COPD, anxiety disorder, nicotine dependence Patient presents with complaint of frequent falls and generalized weakness. Patient reported that she fell twice yesterday and today had another fall. Patient was found on both times on the floor by her son. Patient reported that she hit her head yesterday when she fell but did not lose consciousness. Patient cannot recall the exact circumstances relating to the fall and cannot remember how long she was on the floor. Patient reports associated signs and symptoms of cough, chest congestion, shortness of breath and headache. Patient noted with bilateral upper and lower extremity bruising\skin tear. Patient denies any other signs and symptoms. Symptoms are aggravated or relieved by nothing. Patient was brought to the hospital for medical evaluation. Hospital Course: Problem List: Severe T4 Thoracic compression fracture Multiple rib fractures, indeterminate age Generalized weakness h/o frequent falls Rhabdomyolysis Advanced /end stage chronic COPD (O2 at home) Hyponatremia Hypokalemia Anxiety disorder Anemia of chronic disease Nicotine dependence Family reported patient has been progressively declining over the last several months. She has had increased falls and back pain, now getting fractures from her falls. These most recent falls have lead to multiple rib fractures and severe T4 thoracic fracture. She has had progressive COPD symptoms as well. Patient has voiced her quality of life has significantly decreased and has voiced not wanting to prolong all of her suffering. Sons at bedside were in agreement and the decision was made to focus on comfort measures. Family initially looking into hospice at a nursing facility, however patient became more hypoxic and and passed comfortably on 08/23 at 14:22 with family at bedside. Physical Exam: Vital Signs/Physical Exam: Temp Pulse Resp BP Pulse Ox 97.2 F 114 H 16 119/83 97 08/23/23 13:24 08/23/23 13:24 08/23/23 13:24 08/23/23 13:24 08/23/23 13:24 Laboratory Data at Discharge: WBC 11.80 thou/uL (4.3-10.9) H 08/22/23 05:57 Hgb 11.5 g/dL (12.0-15.0) L 08/22/23 05:57 Hct 33.9 % (36.0-45.0) L 08/22/23 05:57 Plt Count 209 thou/uL (152-406) 08/22/23 05:57 PT 14.3 SECONDS (9.5-12.5) H 08/21/23 13:56 INR 1.30 08/21/23 13:56 Sodium 131 mEq/L (136-145) L 08/22/23 05:57 Potassium 4.9 mEq/L (3.5-5.1) 08/22/23 05:57 BUN 23 mg/dL (7-18) H 08/22/23 05:57 Creatinine 0.85 mg/dL (0.55-1.02) 08/22/23 05:57 Glucose 67 mg/dL (74-106) L 08/22/23 05:57 Phosphorus 2.8 mg/dL (2.5-4.9) 08/21/23 13:56 Magnesium 1.6 mg/dL (1.6-2.4) 08/21/23 13:56 Total Bilirubin 0.9 mg/dL (0.2-1.0) 08/21/23 07:31 AST 51 U/L (15-37) H 08/21/23 07:31 ALT 23 U/L (13-56) 08/21/23 07:31 Alkaline Phosphatase 87 U/L (45-117) 08/21/23 07:31 Triglycerides 95 mg/dL (<150) 08/22/23 05:57 Cholesterol 117 mg/dL (<200) 08/22/23 05:57 HDL Cholesterol 49 mg/dL (40-60) 08/22/23 05:57 Cholesterol/HDL Ratio 2.39 08/22/23 05:57 Home Medications: levoFLOXacin [Levaquin*] 750 mg PO DAILY #7 tab 07/26/15 ALPRAZolam [Alprazolam] 3 mg PO BEDTIME 08/21/23 Followup: NONE,NONE [Primary Care Provider] - Time spent managing pt's care (in minutes): 45
[2023-08-24 09:57] VITALS: BP 118/53; TEMP 99.7
== END 2023-08-23 16:00 | disposition expired | DRG 184 ==
LOC: ER 07:15 → ERHOLD 10:32 → 4TH 11:45
PROVIDERS: ADMIT Hospitalist; ATTEND Hospitalist
DX: S22.42XA Multiple fractures of ribs, left side, initial encounter for closed fracture (principal); E87.1 Hypo-osmolality and hyponatremia; S32.512A Fracture of superior rim of left pubis, initial encounter for closed fracture; S22.040A Wedge compression fracture of fourth thoracic vertebra, initial encounter for closed fracture; J96.11 Chronic respiratory failure with hypoxia; J44.1 Chronic obstructive pulmonary disease with (acute) exacerbation; M62.82 Rhabdomyolysis; E87.6 Hypokalemia; D63.8 Anemia in other chronic diseases classified elsewhere; G89.29 Other chronic pain; M54.9 Dorsalgia, unspecified; F41.9 Anxiety disorder, unspecified; D72.829 Elevated white blood cell count, unspecified; F17.200 Nicotine dependence, unspecified, uncomplicated; R29.6 Repeated falls; Z66 Do not resuscitate; Z51.5 Encounter for palliative care; Z71.6 Tobacco abuse counseling; Z88.5 Allergy status to narcotic agent; Z88.0 Allergy status to penicillin; Z91.81 History of falling; Z99.81 Dependence on supplemental oxygen; Z90.49 Acquired absence of other specified parts of digestive tract; Z90.711 Acquired absence of uterus with remaining cervical stump; Z79.899 Other long term (current) drug therapy; W18.30XA Fall on same level, unspecified, initial encounter; Y93.9 Activity, unspecified; Y92.9 Unspecified place or not applicable; Y99.9 Unspecified external cause status
CPT/HCPCS: 36415; 70450; 71045; 71250; 72125; 72146; 72148; 72170; 80048; 80061; 80076; 81001; 82550; 83036; 83735; 83880; 84100; 84439; 84443; 84484; 85025; 85610; 93005; 99285; J2270; J2920; J7030; J7613; J7614; J7644